=== PATIENT | male | born 1960 | race Caucasian/White ===

== ENCOUNTER 2017-05-24 15:35 | Observation (INO) | payer MEDICARE, OTHER, SELFPAY ==
[~2017-05-24] VITALS: Ht 177.8 cm; Wt 85.3 kg
[~2017-05-24 15:35] MED LIST changes: -COLE1 PO; -CREON DR 24,001 EACH; -FENT50TP TOP; -ONDA4ODT; -OPDIVO40 MG/4 ML IV
[2017-05-24 16:49] LABS: BASOPHILS PERCENT AUTO 0 % (0-2); EOSINOPHILS PERCENT AUTO 0 % (0-6); IMMATURE GRAN ABSOLUTE AUTO 0.03 K/mm3 (0.00-0.10); IMMATURE GRAN PERCENT AUTO 0 % (0-1); LYMPHOCYTES PERCENT AUTO 6 % (21-46); MONOCYTES ABSOLUTE AUTO 0.18 K/mm3 (0.16-1.47); MONOCYTES PERCENT AUTO 3 % (4-13); Mean Corpuscular HGB 28.8 pg (26.0-34.0); Mean Corpuscular HGB Conc 29.9 g/dL (31.5-36.5); Mean Corpuscular Volume 96 fL (80-100); Mean Platelet Volume 10.9 fL (9.1-12.4); NEUTROPHILS ABSOLUTE AUTO 6.72 K/mm3 (1.96-9.15); NEUTROPHILS PERCENT AUTO 92 % (41-73); NRBC ABSOLUTE 0.02 K/mm3 (0.00-0.02); NRBC Auto 0.3 /100 WBC (0.0-0.2); Platelet Count 297 K/mm3 (150-400); RDW Coefficient Variation 18.4 % (11.7-14.2); RDW Standard Deviation 64.6 fL (35.1-46.3); Red Blood Cell Count 1.84 M/mm3 (4.30-5.90); White Blood Cell Count 7.33 K/mm3 (4.00-11.30)
[2017-05-24 16:57] LABS: Hematocrit 17.7 % (37.0-53.0); Hemoglobin 5.3 g/dL (13.5-17.5)
[2017-05-24 17:05] LABS: International Normalized Ratio 1.21; Prothrombin Time Results 12.7 Sec (9.7-11.5)
[2017-05-24 17:12] LABS: Alanine Aminotransfer (ALT/SGP 32 U/L (12-78); Albumin, Blood 2.5 g/dL (3.4-5.0); Albumin/Globulin Ratio 0.8 (0.8-1.8); Alk Phos 188 U/L (50-136); Anion Gap 10 mmol/L (6-16); Aspartate Aminotrans (AST/SGOT 14 U/L (12-37); Bilirubin, Total 0.3 mg/dL (0.1-1.0); Blood Urea Nitrogen 19 mg/dL (8-24); Bun/Creatinine Ratio 24.4 (12.0-20.0); CO2, Blood 20 mmol/L (21-32); Calcium, Blood 7.7 mg/dL (8.5-10.1); Chloride, Blood 112 mmol/L (98-108); Creatinine, Blood 0.78 mg/dL (0.60-1.20); Glomerular Filtration Rate >60 (60-); Glucose, Blood 171 mg/dL (70-99); Potassium, Blood 4.6 mmol/L (3.5-5.5); Sodium, Blood 142 mmol/L (136-145); Total Protein, Blood 5.5 g/dL (6.4-8.2)
[2017-05-24] MEDS ORDERED: COLE1 PO ×2 (17:29)
[2017-05-24] MEDS ORDERED: CREON DR 24,001 EACH ×2 (17:30)
[2017-05-24] MEDS ORDERED: Lomotil Tablet1 EACH PO ×2 (17:31)
[2017-05-25 01:47] LABS: Hematocrit 22.8 % (37.0-53.0); Hemoglobin 7.1 g/dL (13.5-17.5)
[2017-05-25 05:09] LABS: Hematocrit 22.2 % (37.0-53.0); Mean Corpuscular HGB 28.2 pg (26.0-34.0); Mean Corpuscular HGB Conc 31.5 g/dL (31.5-36.5); Mean Platelet Volume 10.8 fL (9.1-12.4); NRBC ABSOLUTE 0.12 K/mm3 (0.00-0.02); NRBC Auto 1.5 /100 WBC (0.0-0.2); Platelet Count 247 K/mm3 (150-400); RDW Coefficient Variation 16.9 % (11.7-14.2); RDW Standard Deviation 54.7 fL (35.1-46.3); Red Blood Cell Count 2.48 M/mm3 (4.30-5.90); White Blood Cell Count 8.42 K/mm3 (4.00-11.30)
[2017-05-25 05:12] LABS: Mean Corpuscular Volume 90 fL (80-100)
[2017-05-25 05:28] LABS: Anion Gap 7 mmol/L (6-16); Blood Urea Nitrogen 18 mg/dL (8-24); Bun/Creatinine Ratio 27.4 (12.0-20.0); CO2, Blood 23 mmol/L (21-32); Calcium, Blood 7.5 mg/dL (8.5-10.1); Chloride, Blood 111 mmol/L (98-108); Creatinine, Blood 0.66 mg/dL (0.60-1.20); Glomerular Filtration Rate >60 (60-); Glucose, Blood 121 mg/dL (70-99); Potassium, Blood 3.9 mmol/L (3.5-5.5); Sodium, Blood 141 mmol/L (136-145)
== END 2017-05-25 17:15 | disposition home or self-care (01) ==
LOC: ER 15:35 → ERHOLD 15:36 → MEDS 15:37 → ERHOLD 20:05 → MEDS 20:05
PROVIDERS: Emergency Medicine; Internal Medicine
DX: C25.9 Malignant neoplasm of pancreas, unspecified (principal); D63.0 Anemia in neoplastic disease; D63.1 Anemia in chronic kidney disease; R18.0 Malignant ascites; I12.9 Hypertensive chronic kidney disease with stage 1 through stage 4 chronic kidney disease, or unspecified chronic kidney disease; N18.9 Chronic kidney disease, unspecified; N40.0 Benign prostatic hyperplasia without lower urinary tract symptoms; M19.90 Unspecified osteoarthritis, unspecified site; Z88.1 Allergy status to other antibiotic agents; Z88.5 Allergy status to narcotic agent; Z98.890 Other specified postprocedural states; Z79.899 Other long term (current) drug therapy; Z87.891 Personal history of nicotine dependence; Z90.49 Acquired absence of other specified parts of digestive tract
CPT/HCPCS: 36415; 36430; 49083; 71046; 80048; 80053; 82272; 83690; 85014; 85018; 85025; 85027; 85610; 85730; 86850; 86900; 86901; 86923; 99285; G0378; J7030; P9016

== ENCOUNTER → 2017-05-24 | Outpatient (CLI) | payer MEDICARE, OTHER ==
[~2017-05-24] MED LIST: ACET325 PO; ALUMAG30SU PO; CIPR500 PO; COLE1 PO; CREON DR 12,001 EACH PO; CREON DR 24,001 EACH; DIBU30TO PR; DIPATR PO; FAMO20 PO; FENT50TP TOP; FLUC100 PO; Flomax0.4 MG PO; GAVILAX17 G1 PO; HYDACE5 PO; HYDCOR1TOA TOP; HYDMOR2 PO; IBUP800 PO; K-Dur10 MEQ PO; KETO10 PO; Lasix40 MG PO; Lomotil Tablet1 EACH PO; METR500 PO; NAPR500 PO; ONDA4 PO; ONDA4ODT; ONDA4ODT MM; ONDA8 PO; OPDIVO40 MG/4 ML IV; OXYACE5T PO; OXYC5 PO; Omeprazole20 M1 PO; Oxycodone HCl5 M1; POTASSIUM CHLO20 MEQ PO; POTCHL20ER PO; PRED10 PO; PRED5 PO; PREVALITE PAC4 G/PKT GT; PROM25 PO; Peri-Colace Ta1 EACH PO; RXNAPNA550 PO; SULTRIDS PO; Stool Softener100 MG PO; Zofran Odt4 MG SL; Zofran Odt8 MG PO; creon PO
[2017-05-24 12:51] LABS: Alanine Aminotransfer (ALT/SGP 30 U/L (12-78); Albumin, Blood 2.4 g/dL (3.4-5.0); Albumin/Globulin Ratio 0.9 (0.8-1.8); Alk Phos 173 U/L (50-136); Anion Gap 8 mmol/L (6-16); Aspartate Aminotrans (AST/SGOT 14 U/L (12-37); Bilirubin, Total 0.3 mg/dL (0.1-1.0); Blood Urea Nitrogen 19 mg/dL (8-24); Bun/Creatinine Ratio 26.9 (12.0-20.0); CO2, Blood 21 mmol/L (21-32); Calcium, Blood 7.5 mg/dL (8.5-10.1); Chloride, Blood 112 mmol/L (98-108); Creatinine, Blood 0.71 mg/dL (0.60-1.20); Globulin, Blood 2.7 g/dL (2.2-4.0); Glomerular Filtration Rate >60 (60-); Glucose, Blood 124 mg/dL (70-99); Potassium, Blood 4.2 mmol/L (3.5-5.5); Sodium, Blood 141 mmol/L (136-145); Total Protein, Blood 5.1 g/dL (6.4-8.2)
[2017-05-24 12:54] LABS: BASOPHILS ABSOLUTE AUTO 0.01 K/mm3 (0.00-0.23); BASOPHILS PERCENT AUTO 0 % (0-2); EOSINOPHILS PERCENT AUTO 0 % (0-6); IMMATURE GRAN ABSOLUTE AUTO 0.04 K/mm3 (0.00-0.10); IMMATURE GRAN PERCENT AUTO 1 % (0-1); LYMPHOCYTES ABSOLUTE AUTO 0.51 K/mm3 (0.84-5.20); LYMPHOCYTES PERCENT AUTO 8 % (21-46); MONOCYTES ABSOLUTE AUTO 0.53 K/mm3 (0.16-1.47); MONOCYTES PERCENT AUTO 8 % (4-13); Mean Corpuscular HGB 28.6 pg (26.0-34.0); Mean Corpuscular Volume 95 fL (80-100); NEUTROPHILS ABSOLUTE AUTO 5.61 K/mm3 (1.96-9.15); NEUTROPHILS PERCENT AUTO 84 % (41-73); NRBC ABSOLUTE 0.04 K/mm3 (0.00-0.02); NRBC Auto 0.5 /100 WBC (0.0-0.2); Platelet Count 266 K/mm3 (150-400); RDW Coefficient Variation 18.4 % (11.7-14.2); RDW Standard Deviation 63.9 fL (35.1-46.3); Red Blood Cell Count 1.68 M/mm3 (4.30-5.90)
[2017-05-24 13:08] LABS: Hemoglobin 4.8 g/dL (13.5-17.5)
== END | disposition home or self-care (01) ==
LOC: LAB 12:11
PROVIDERS: Internal Medicine Hematology & Oncology
DX: C25.0 Malignant neoplasm of head of pancreas (principal); C77.2 Secondary and unspecified malignant neoplasm of intra-abdominal lymph nodes; C78.6 Secondary malignant neoplasm of retroperitoneum and peritoneum; R11.2 Nausea with vomiting, unspecified; R18.0 Malignant ascites
CPT/HCPCS: 36415; 80053; 85025

== ENCOUNTER 2017-06-01 10:58 | Day surgery (SDC) | payer MEDICARE, OTHER ==
[~2017-06-01 10:58] MED LIST changes: +COLE1 PO; +CREON DR 24,001 EACH
== END 2017-06-01 22:52 | disposition home or self-care (01) ==
LOC: US 10:58
DX: C25.0 Malignant neoplasm of head of pancreas (principal); C77.2 Secondary and unspecified malignant neoplasm of intra-abdominal lymph nodes; C78.6 Secondary malignant neoplasm of retroperitoneum and peritoneum; R18.0 Malignant ascites
CPT/HCPCS: 76705

== ENCOUNTER 2017-06-12 14:51 | Day surgery (SDC) | payer MEDICARE, OTHER | END 2017-06-12 23:03 | disposition home or self-care (01) | LOC: US 14:51 | PROC: 0W9G3ZZ Drainage of Peritoneal Cavity, Percutaneous Approach (ICD-10-PCS; principal; 2017-06-12) | DX: R18.0 Malignant ascites (principal); C25.0 Malignant neoplasm of head of pancreas; C77.2 Secondary and unspecified malignant neoplasm of intra-abdominal lymph nodes; C78.6 Secondary malignant neoplasm of retroperitoneum and peritoneum | CPT/HCPCS: 49083 ==

== ENCOUNTER 2017-06-19 14:44 | Day surgery (SDC) | payer MEDICARE, OTHER | END 2017-06-19 22:50 | disposition home or self-care (01) | LOC: US 14:44 | PROC: 0W9G3ZZ Drainage of Peritoneal Cavity, Percutaneous Approach (ICD-10-PCS; principal; 2017-06-19) | DX: C25.0 Malignant neoplasm of head of pancreas (principal); C77.2 Secondary and unspecified malignant neoplasm of intra-abdominal lymph nodes; C78.6 Secondary malignant neoplasm of retroperitoneum and peritoneum; R18.0 Malignant ascites | CPT/HCPCS: 49083 ==

== ENCOUNTER 2017-06-26 14:48 | Day surgery (SDC) | payer MEDICARE, OTHER | END 2017-06-26 22:57 | disposition home or self-care (01) | LOC: US 14:48 | PROC: 0W9G3ZZ Drainage of Peritoneal Cavity, Percutaneous Approach (ICD-10-PCS; principal; 2017-06-26) | DX: C25.0 Malignant neoplasm of head of pancreas (principal); C77.2 Secondary and unspecified malignant neoplasm of intra-abdominal lymph nodes; C78.6 Secondary malignant neoplasm of retroperitoneum and peritoneum; R18.0 Malignant ascites | CPT/HCPCS: 49083 ==

== ENCOUNTER 2017-06-29 14:33 | Day surgery (SDC) | payer MEDICARE, OTHER, SELFPAY | END 2017-06-30 00:07 | disposition home or self-care (01) | LOC: US 14:33 | PROC: 0W9G3ZZ Drainage of Peritoneal Cavity, Percutaneous Approach (ICD-10-PCS; principal; 2017-06-29) | DX: C25.0 Malignant neoplasm of head of pancreas (principal); C77.2 Secondary and unspecified malignant neoplasm of intra-abdominal lymph nodes; C78.6 Secondary malignant neoplasm of retroperitoneum and peritoneum; R18.0 Malignant ascites | CPT/HCPCS: 49083 ==

== ENCOUNTER 2017-07-03 15:05 | Day surgery (SDC) | payer MEDICARE, OTHER | END 2017-07-03 22:42 | disposition home or self-care (01) | LOC: US 15:05 | PROC: 0W9G3ZZ Drainage of Peritoneal Cavity, Percutaneous Approach (ICD-10-PCS; principal; 2017-07-03) | DX: C25.0 Malignant neoplasm of head of pancreas (principal); C77.2 Secondary and unspecified malignant neoplasm of intra-abdominal lymph nodes; C78.6 Secondary malignant neoplasm of retroperitoneum and peritoneum; R18.0 Malignant ascites; R11.2 Nausea with vomiting, unspecified | CPT/HCPCS: 49083 ==

== ENCOUNTER 2017-07-06 15:01 | Day surgery (SDC) | payer MEDICARE, OTHER | END 2017-07-06 23:26 | disposition home or self-care (01) | LOC: US 15:01 | PROC: 0W9G3ZZ Drainage of Peritoneal Cavity, Percutaneous Approach (ICD-10-PCS; principal; 2017-07-06) | DX: R18.8 Other ascites (principal) | CPT/HCPCS: 49083 ==

== ENCOUNTER 2017-07-10 14:52 | Day surgery (SDC) | payer MEDICARE, OTHER | END 2017-07-10 22:53 | disposition home or self-care (01) | LOC: US 14:52 | PROC: 0W9G3ZZ Drainage of Peritoneal Cavity, Percutaneous Approach (ICD-10-PCS; principal; 2017-07-10) | DX: C25.0 Malignant neoplasm of head of pancreas (principal); C77.2 Secondary and unspecified malignant neoplasm of intra-abdominal lymph nodes; C78.6 Secondary malignant neoplasm of retroperitoneum and peritoneum; R18.0 Malignant ascites | CPT/HCPCS: 49083 ==

== ENCOUNTER 2017-07-13 15:05 | Day surgery (SDC) | payer MEDICARE, SELFPAY | END 2017-07-13 22:59 | disposition home or self-care (01) | LOC: US 15:05 | PROC: 0W9G3ZZ Drainage of Peritoneal Cavity, Percutaneous Approach (ICD-10-PCS; principal; 2017-07-13) | DX: C25.0 Malignant neoplasm of head of pancreas (principal); C77.2 Secondary and unspecified malignant neoplasm of intra-abdominal lymph nodes; C78.6 Secondary malignant neoplasm of retroperitoneum and peritoneum; R11.2 Nausea with vomiting, unspecified; R18.0 Malignant ascites | CPT/HCPCS: 49083 ==

== ENCOUNTER 2017-07-17 14:52 | Day surgery (SDC) | payer MEDICARE, OTHER | END 2017-07-17 23:19 | disposition home or self-care (01) | LOC: US 14:52 | PROC: 0W9G3ZZ Drainage of Peritoneal Cavity, Percutaneous Approach (ICD-10-PCS; principal; 2017-07-17) | DX: C25.0 Malignant neoplasm of head of pancreas (principal); C77.2 Secondary and unspecified malignant neoplasm of intra-abdominal lymph nodes; C78.6 Secondary malignant neoplasm of retroperitoneum and peritoneum; R11.2 Nausea with vomiting, unspecified; R18.0 Malignant ascites | CPT/HCPCS: 49083 ==

== ENCOUNTER 2017-07-20 02:34 | Day surgery (SDC) | payer MEDICARE, SELFPAY | END 2017-07-20 22:58 | disposition home or self-care (01) | LOC: US 02:34 | PROC: 0W9G3ZZ Drainage of Peritoneal Cavity, Percutaneous Approach (ICD-10-PCS; principal; 2017-07-20) | DX: C25.0 Malignant neoplasm of head of pancreas (principal); C77.2 Secondary and unspecified malignant neoplasm of intra-abdominal lymph nodes; C78.6 Secondary malignant neoplasm of retroperitoneum and peritoneum; R11.2 Nausea with vomiting, unspecified; R18.0 Malignant ascites | CPT/HCPCS: 49083 ==

== ENCOUNTER 2017-07-24 15:00 | Day surgery (SDC) | payer MEDICARE, SELFPAY | END 2017-07-24 22:40 | disposition home or self-care (01) | LOC: US 15:00 | PROC: 0W9G3ZZ Drainage of Peritoneal Cavity, Percutaneous Approach (ICD-10-PCS; principal; 2017-07-24) | DX: C25.0 Malignant neoplasm of head of pancreas (principal); C77.2 Secondary and unspecified malignant neoplasm of intra-abdominal lymph nodes; C78.6 Secondary malignant neoplasm of retroperitoneum and peritoneum; R18.0 Malignant ascites; R11.2 Nausea with vomiting, unspecified | CPT/HCPCS: 49083 ==

== ENCOUNTER 2017-07-27 14:58 | Day surgery (SDC) | payer MEDICARE, SELFPAY | END 2017-07-27 22:43 | disposition home or self-care (01) | LOC: US 14:58 | PROC: 0W9G3ZZ Drainage of Peritoneal Cavity, Percutaneous Approach (ICD-10-PCS; principal; 2017-07-27) | DX: C25.0 Malignant neoplasm of head of pancreas (principal); C77.2 Secondary and unspecified malignant neoplasm of intra-abdominal lymph nodes; C78.6 Secondary malignant neoplasm of retroperitoneum and peritoneum; R11.2 Nausea with vomiting, unspecified; R18.0 Malignant ascites | CPT/HCPCS: 49083 ==

== ENCOUNTER 2017-07-29 17:04 | Emergency (ER) | payer MEDICARE, SELFPAY ==
[~2017-07-29] VITALS: Ht 172.7 cm; Wt 72.1 kg
[2017-07-29 17:49] LABS: BASOPHILS ABSOLUTE AUTO 0.02 K/mm3 (0.00-0.23); BASOPHILS PERCENT AUTO 0 % (0-2); EOSINOPHILS PERCENT AUTO 0 % (0-6); Hematocrit 42.3 % (37.0-53.0); Hemoglobin 12.4 g/dL (13.5-17.5); IMMATURE GRAN PERCENT AUTO 1 % (0-1); LYMPHOCYTES ABSOLUTE AUTO 0.59 K/mm3 (0.84-5.20); LYMPHOCYTES PERCENT AUTO 4 % (21-46); MONOCYTES ABSOLUTE AUTO 0.82 K/mm3 (0.16-1.47); MONOCYTES PERCENT AUTO 6 % (4-13); Mean Corpuscular HGB 22.5 pg (26.0-34.0); Mean Corpuscular HGB Conc 29.3 g/dL (31.5-36.5); Mean Corpuscular Volume 77 fL (80-100); NEUTROPHILS ABSOLUTE AUTO 13.46 K/mm3 (1.96-9.15); NEUTROPHILS PERCENT AUTO 90 % (41-73); Platelet Count 263 K/mm3 (150-400); RDW Coefficient Variation 23.5 % (11.7-14.2); RDW Standard Deviation 62.3 fL (35.1-46.3); White Blood Cell Count 14.99 K/mm3 (4.00-11.30)
[2017-07-29 17:56] LABS: Mean Platelet Volume 10.8 fL (9.1-12.4)
[2017-07-29 18:01] LABS: Alanine Aminotransfer (ALT/SGP 25 U/L (12-78); Albumin/Globulin Ratio 0.5 (0.8-1.8); Alk Phos 203 U/L (50-136); Anion Gap 9 mmol/L (6-16); Aspartate Aminotrans (AST/SGOT 22 U/L (12-37); Bilirubin, Total 0.9 mg/dL (0.1-1.0); Blood Urea Nitrogen 20 mg/dL (8-24); Bun/Creatinine Ratio 20.8 (12.0-20.0); CO2, Blood 22 mmol/L (21-32); Calcium, Blood 7.7 mg/dL (8.5-10.1); Chloride, Blood 102 mmol/L (98-108); Creatinine, Blood 0.96 mg/dL (0.60-1.20); Globulin, Blood 4.1 g/dL (2.2-4.0); Glomerular Filtration Rate >60 (60-); Glucose, Blood 141 mg/dL (70-99); Potassium, Blood 4.1 mmol/L (3.5-5.5); Sodium, Blood 133 mmol/L (136-145); Total Protein, Blood 6.1 g/dL (6.4-8.2)
[2017-07-29 19:23] LABS: Source, Urine Clean Catch
[2017-07-29 19:31] LABS: Appearance, Urine Clear (Clear); Bilirubin, Urine Neg (Neg); Blood, Urine 2+ (Neg); Color, Urine Yellow (P-Yellow); Glucose Qualitative, Urine Neg (Neg); Ketones, Urine Neg (Neg); Leukocyte Esterase, Urine Neg (Neg); Nitrite, Urine Neg (Neg); Protein, Urine 1+ (Neg); Specific Gravity, Urine 1.025 (1.003-1.022); Urobilinogen, Urine NORM (Normal)
[2017-07-29 19:46] LABS: Bacteria Rare /hpf; Hyaline Casts 0-2 /lpf (0-2); Squamous Epithelial Cells Few /hpf (Few); White Blood Cells, Urine 0-2 /hpf (0-5)
== END 2017-07-29 20:00 | disposition home or self-care (01) ==
LOC: ER 17:04
PROVIDERS: Emergency Medicine; Internal Medicine
DX: C25.9 Malignant neoplasm of pancreas, unspecified (principal); F50.89 Other specified eating disorder; Z88.1 Allergy status to other antibiotic agents; Z88.5 Allergy status to narcotic agent; Z79.899 Other long term (current) drug therapy; Z79.52 Long term (current) use of systemic steroids; Z87.891 Personal history of nicotine dependence
CPT/HCPCS: 71046; 80053; 81001; 83690; 85025; 96361; 96374; 99283; J2405; J7030

== ENCOUNTER 2017-07-31 10:54 | Day surgery (SDC) | payer MEDICARE, SELFPAY | END 2017-07-31 22:40 | disposition home or self-care (01) | LOC: US 10:54 | PROC: 0W9G3ZZ Drainage of Peritoneal Cavity, Percutaneous Approach (ICD-10-PCS; principal; 2017-07-31) | DX: C25.0 Malignant neoplasm of head of pancreas (principal); C77.2 Secondary and unspecified malignant neoplasm of intra-abdominal lymph nodes; C78.6 Secondary malignant neoplasm of retroperitoneum and peritoneum; R11.2 Nausea with vomiting, unspecified; R18.0 Malignant ascites; Z87.891 Personal history of nicotine dependence; I10 Essential (primary) hypertension; Z79.899 Other long term (current) drug therapy | CPT/HCPCS: 49083 ==

== ENCOUNTER 2017-08-05 14:01 | Inpatient (IN) | payer MEDICARE, SELFPAY ==
[~2017-08-05] VITALS: Ht 175.3 cm; Wt 66.0 kg
[2017-08-05] MEDS ORDERED: FENT50TP TOP (14:12)
[2017-08-05] MEDS ORDERED: ONDA4ODT (14:12)
[2017-08-05] MEDS ORDERED: OPDIVO40 MG/4 ML IV (14:13)
[2017-08-05 14:28] LABS: Hematocrit 41.3 % (37.0-53.0); Hemoglobin 12.4 g/dL (13.5-17.5); Mean Corpuscular HGB 22.8 pg (26.0-34.0); Mean Corpuscular Volume 76 fL (80-100); Platelet Count 242 K/mm3 (150-400); RDW Coefficient Variation 24.9 % (11.7-14.2); RDW Standard Deviation 64.5 fL (35.1-46.3); Red Blood Cell Count 5.45 M/mm3 (4.30-5.90); White Blood Cell Count 12.93 K/mm3 (4.00-11.30)
[2017-08-05 14:38] LABS: International Normalized Ratio 1.83; Prothrombin Time Results 19.4 Sec (9.7-11.5)
[2017-08-05 14:44] LABS: Alanine Aminotransfer (ALT/SGP 34 U/L (12-78); Albumin, Blood 1.6 g/dL (3.4-5.0); Albumin/Globulin Ratio 0.4 (0.8-1.8); Alk Phos 196 U/L (50-136); Anion Gap 12 mmol/L (6-16); Aspartate Aminotrans (AST/SGOT 14 U/L (12-37); Bilirubin, Total 0.8 mg/dL (0.1-1.0); Blood Urea Nitrogen 52 mg/dL (8-24); CO2, Blood 17 mmol/L (21-32); Calcium, Blood 7.8 mg/dL (8.5-10.1); Chloride, Blood 103 mmol/L (98-108); Creatinine, Blood 2.17 mg/dL (0.60-1.20); Globulin, Blood 4.1 g/dL (2.2-4.0); Glomerular Filtration Rate 33 (60-); Glucose, Blood 183 mg/dL (70-99); Potassium, Blood 5.6 mmol/L (3.5-5.5); Sodium, Blood 132 mmol/L (136-145); Total Protein, Blood 5.7 g/dL (6.4-8.2); Troponin I <0.015 ng/mL (0.000-0.040)
[2017-08-05 14:47] LABS: BAND PERCENT MAN 23 % (0-8); BASOPHILS PERCENT MAN 0 % (0-2); EOSINOPHILS PERCENT MAN 0 % (0-6); LYMPHOCYTES % ATYPICAL MANUAL 1 % (0-0); LYMPHOCYTES ABSOLUTE MAN 0.77 K/mm3 (0.84-5.20); LYMPHOCYTES PERCENT MAN 5 % (21-46); MONOCYTES ABSOLUTE MAN 0.77 K/mm3 (0.16-1.47); MONOCYTES PERCENT MAN 6 % (4-13); NEUTROPHILS ABSOLUTE MAN 11.37 K/mm3 (1.96-9.15); SEG NEUTROPHILS PERCENT MAN 65 % (41-73); TOTAL CELLS COUNTED 100
[2017-08-05 15:41] LABS: Base Excess Venous -8.8 mmol/L; PCO2 Venous 34.1 mmHg (38-42); PO2 Venous 63.5 mmHg (38-42); pH Blood Venous 7.32 (7.34-7.37)
[2017-08-05 19:35] LABS: Automated BF RBC Count 0.009 M/mm3 (0-0)
[2017-08-05 19:36] LABS: Albumin, Body Fluid 0.5 g/dL; Glucose, Body Fluid 113 mg/dL; Protein, Body Fluid 1.5 g/dL
[2017-08-05 19:40] LABS: Lactate Dehydrogenase, Body Fl 3339 U/L
[2017-08-05 20:20] LABS: Appearance, Body Fluid Turbid (Clear)
[2017-08-05 20:39] LABS: Total Cell Count, Body Fluid 100
[2017-08-05 20:40] LABS: Body Fluid WBC Count 73560 /mm3 (0-999); RBC Count, Body Fluid 9000 /mm3 (0-0)
[2017-08-06 05:20] LABS: Hematocrit 43.2 % (37.0-53.0); Hemoglobin 12.9 g/dL (13.5-17.5); Mean Corpuscular HGB Conc 29.9 g/dL (31.5-36.5); Mean Corpuscular Volume 77 fL (80-100); NRBC ABSOLUTE 0.02 K/mm3 (0.00-0.02); NRBC Auto 0.2 /100 WBC (0.0-0.2); Platelet Count 245 K/mm3 (150-400); RDW Coefficient Variation 25.4 % (11.7-14.2); RDW Standard Deviation 67.4 fL (35.1-46.3); White Blood Cell Count 12.41 K/mm3 (4.00-11.30)
[2017-08-06 05:41] LABS: Albumin, Blood 1.3 g/dL (3.4-5.0); Albumin/Globulin Ratio 0.4 (0.8-1.8); Bilirubin, Total 0.8 mg/dL (0.1-1.0); Bun/Creatinine Ratio 22.1 (12.0-20.0); Calcium, Blood 7.3 mg/dL (8.5-10.1); Creatinine, Blood 2.62 mg/dL (0.60-1.20); Globulin, Blood 3.7 g/dL (2.2-4.0)
[2017-08-06 05:55] LABS: Source, Urine Voided
[2017-08-06 06:07] LABS: Bilirubin, Urine Neg (Neg); Blood, Urine 1+ (Neg); Glucose Qualitative, Urine Neg (Neg); Ketones, Urine Neg (Neg); Leukocyte Esterase, Urine Neg (Neg); Nitrite, Urine Neg (Neg); Protein, Urine 1+ (Neg); Urobilinogen, Urine NORM (Normal)
[2017-08-06 06:13] LABS: BAND PERCENT MAN 8 % (0-8); BASOPHILS PERCENT MAN 0 % (0-2); EOSINOPHILS PERCENT MAN 0 % (0-6); MONOCYTES ABSOLUTE MAN 0.49 K/mm3 (0.16-1.47); MONOCYTES PERCENT MAN 4 % (4-13); NEUTROPHILS ABSOLUTE MAN 11.91 K/mm3 (1.96-9.15); SEG NEUTROPHILS PERCENT MAN 88 % (41-73); TOTAL CELLS COUNTED 100
[2017-08-06 06:24] LABS: Appearance, Urine Clear (Clear); Color, Urine Yellow (P-Yellow); U Amphetamine Screen Not Detected; U Barbituate Screen Not Detected; U Benzodiazapine Screen Not Detected; U Buprenorphine Screen Not Detected; U Cannabinoids Screen Not Detected; U Cocaine Screen Not Detected; U Methadone Screen Not Detected; U Methamphetamine Screen Not Detected; U Opiates Screen Not Detected; U Oxycodone Screen Not Detected; U Phencyclidine Screen Not Detected; U Propoxyphene Screen Not Detected
[2017-08-06 06:25] LABS: Hyaline Casts 0-2 /lpf (0-2)
[2017-08-06 06:26] LABS: Squamous Epithelial Cells Few /hpf (Few)
[2017-08-06 06:27] LABS: Bacteria Not Seen /hpf
== END 2017-08-06 13:49 | DRG 872 ==
LOC: ER 14:01 → MEDS 14:02 → PCU 20:13
PROVIDERS: Emergency Medicine; Internal Medicine; Internal Medicine Endocrinology, Diabetes & Metabolism
PROC: 0W9G3ZX Drainage of Peritoneal Cavity, Percutaneous Approach, Diagnostic (ICD-10-PCS; principal; 2017-08-05)
DX: A41.9 Sepsis, unspecified organism (principal); R18.0 Malignant ascites; E87.2 Acidosis; N17.9 Acute kidney failure, unspecified; C25.9 Malignant neoplasm of pancreas, unspecified; N20.1 Calculus of ureter; Z51.5 Encounter for palliative care; I95.9 Hypotension, unspecified; E87.5 Hyperkalemia; R65.20 Severe sepsis without septic shock; K57.30 Diverticulosis of large intestine without perforation or abscess without bleeding; K76.0 Fatty (change of) liver, not elsewhere classified
CPT/HCPCS: 36415; 49083; 71045; 74176; 80053; 81001; 82042; 82803; 82945; 83605; 83615; 83690; 83735; 83880; 84157; 84443; 84484; 85025; 85610; 87040; 87070; 87086; 87205; 89051; 93005; 93010; 94660; 96361; 96374; 96375; 96376; 99285; J0696; J1170; J1200; J1720; J2060; J2405; J2543; J2765; J3010; J7030